=== PATIENT | male | born 1985 | race Caucasian/White ===

== ENCOUNTER 2025-05-15 05:46 | Emergency (ER) | payer OTHER, SELFPAY ==
[2025-05-15] VITALS (10 sets, daily range): BP systolic 116–132; BP diastolic 77–90; BMI 27.4
--- NOTE | 2025-05-15 06:35 | ED.GENMED ---
History of Present Illness
General
Chief Complaint: Catheter/Tube Problem
Source: patient and family (mom)
Exam Limitations: none
Time Seen by Provider: 05/15/25 06:07
Nursing documentation reviewed up to this point in time: agreed with
History of Present Illness
History of Present Illness:
The patient is a 39-year-old man with a past medical history of schizophrenia who arrives to our emergency department with a surgical drain that fell out accidentally within the last 24 hours. The patient is unclear as to how it fell out. The
patient has a vertical abdominal wound that is dressed but soaked with yellow contents. Patient is a vague historian. He reports he was recently at [facility] and underwent ' gut surgery'. He denies pain. He denies fevers and chills.
I spoke to the patient's mom, Padmini, at [phone] who reports that her son developed abdominal pain this past February 2025 and was brought to [facility]'s emergency department where he was diagnosed with what she believes was a perforated
stomach. She reports that he underwent multiple surgeries and unfortunately colon cancer was found. She reports that she believes he has undergone at least 2-3 surgical procedures removing parts of his large intestine and received a colostomy bag.
She reports she was told he has stage IV colon cancer and has not yet undergone treatment. She reports that he became septic from the initial perforations.
Past History
Past History
ED Past Medical History: Cancer (Stage IV colon cancer) and Psychiatric
ED Past Surgical History: Bowel resection (Colonic resection with colostomy)
Social History
Tobacco: Former smoker
Alcohol: Other
Drug: Other
Personal: Single
Living: [facility]ci
Employment: Other
Family History
Family History: Other
Review of Systems
Review of Systems
Allergies reviewed?: Yes
All Other Systems: ROS reviewed and negative except as documented in HPI and ROS
Constitutional: Reports no symptoms
EENT: Reports no symptoms
Respiratory: Reports no symptoms
Cardiac: Reports no symptoms
ABD/GI: Reports no symptoms
: Reports no symptoms
Musculoskeletal: Reports no symptoms
Skin: Reports no symptoms
Neurological: Reports no symptoms
Endocrine: Reports no symptoms
Hematologic/Lymphatic: Reports no symptoms
Psychiatric: Reports no symptoms
Phy Exam
Physical Exam
Physical Exam:
Physical Exam
General: no apparent distress, not acutely ill, chronically ill-appearing, disheveled
Neck: supple.
Heart: s1/s2 regular rate and rhythm, no murmur. equal radial pulses.
Lungs: no acute respiratory distress. clear bilaterally
Abdomen: Normal bowel sounds. Abdomen is slightly distended. Right lower quadrant colostomy bag filled with liquid stool, large lower abdominal vertical surgical-incisional skin edges are not erythematous or warm. Wound site
is draining thin to thick yellow material that is questionably serosanguineous versus purulent material. On palpating the abdomen, patient is relatively nontender. No rebound or guarding.
Neuro: alert and oriented. no focal neurological deficits
Skin: no rash
Psychiatric: well kept. interactive and cooperative
Extremities: no edema. no calf tenderness. negative homans. good distal pulses
Course
Orders/Labs/Results
Orders:
Orders
05/15/25 07:00
CT Abd/pelvis W Iv Cont Urgent
Comment:
Reason For Exam: post-surgical drain accidentally dislodged
05/15/25 08:19
Complete Blood Count/With Diff Urgent
Comprehensive Metabolic Panel Urgent
Abnormal Lab Results
05/15/25
08:19
WBC 11.7 H 10^3/uL
(4.8-10.8)
RBC 4.42 L 10^6/uL
(4.70-6.10)
Hgb 11.0 L g/dL
(13.0-18.0)
Hct 35.3 L %
(39.0-52.0)
MCV 79.9 L fL
(80.0-94.0)
MCH 24.9 L pg
(27.0-31.0)
MCHC 31.2 L g/dL
(33.0-37.0)
RDW 14.9 H %
(11.5-14.5)
Plt Count 627 H 10^3/uL
(130-400)
Abs Immat Gran (auto) 0.1 H 10^3/uL
(0-0.05)
Absolute Neuts (auto) 9.2 H 10^3/uL
(1.4-6.5)
Absolute Monos (auto) 0.9 H 10^3/uL
(0.1-0.6)
Neutrophils % 78.3 H %
(42.2-75.2)
Lymphocytes % 11.4 L %
(20.5-51.1)
BUN 4 L mg/dl
(9-20)
Creatinine 0.6 L mg/dL
(0.7-1.3)
05/15/25 08:19
05/15/25 08:19
Vital Signs
Initial and Last Documented VS:
Initial Vital Signs
Temp Pulse Resp BP Pulse Ox
97.6 F 92 33 123/82 95
05/15/25 05:48 05/15/25 05:48 05/15/25 05:48 05/15/25 05:48 05/15/25 05:48
Last Documented Vital Signs
Temp Pulse Resp BP Pulse Ox
98.2 F 106 29 125/79 97
05/15/25 07:40 05/15/25 09:45 05/15/25 09:45 05/15/25 09:00 05/15/25 08:33
MDM/Problems Addressed
Differential Diagnosis Includes:
Normal postsurgical wound healing, infected wound of abdomen, intra-abdominal abscess
MDM/Problems Addressed:
Patient presents with subacute drainage from abdominal wound
Chronic conditions affecting care: Previous abdomnial surgery
Acute Exacerbation and/or Progression of Chronic Illness:
Patient may have acute infection of wound from abdominal surgery
Acute Exacerbation and/or Progression of Chronic Illness: Previous abdomnial surgery
*Radiology
Radiology exam reviewed: radiology read reviewed
*Pulse Oximetry
SaO2: 99
Oxygen Mode of Delivery: Room air
Patient hypoxic: no
*EKG
Interpreted by ED Provider?: NA
*Rn Acute Care Interpretation
Rate: normal
Interpretation: normal
Rhythm: sinus
*Critical Care Note
Total Time (30-74mins, 75-104mins- exclusive of procedures): Not Applicable
Data Reviewed
Source: patient and family (Mother, Padmini)
Patient Management
Social determinants of health affecting care: Living situation
Discussion with other providers: Other (Surgeons at [facility])
Update Note
Update Note:
7:20 AM I discussed case with surgeon at [facility] who reports that patient is due anyway to have his drain pulled. He reports that drain has been in for 2 months. He reports that unless there is an acute wound infection or an acute
issue, that patient does not need to have the drain replaced and would not need transfer back to [facility]
Given patient does have yellow drainage from wound site, decision made to proceed with a CAT scan to rule out underlying abscess or wound infection
11:00 AM CAT scan shows no sign of intra-abdominal abscess. Wound site does not appear erythematous or warm. Patient still having no pain and is afebrile. I feel patient can safely go back to [facility]
ED Attending Note
-
Portions of this chart may have been created with voice recognition software.� Occasional wrong word or��sound alike� substitutions may have occurred due to the inherent limitations of voice recognition software.
Discharge Plan
Departure
Patient Disposition: Home (Routine Discharge)
Date of Disposition: 05/15/25
Time of Disposition: 11:02
Patient with high blood pressure during this ER visit?: Yes
Condition: Good
Covid-19: Not Applicable
Discharge Problem:
Encounter for post surgical wound check
Instructions: Caring for an open surgical wound, BLOOD PRESSURE
Prescriptions:
No Action
acetaminophen 325 mg Tablet
650 mg PO Q6H PRN (Reason: fever/pain)
citalopram 20 mg Tablet
20 mg PO DAILY
magnesium hydroxide [Milk of Magnesia] 400 mg/5 mL Suspension
400 mg PO HS PRN (Reason: constipation)
bisacodyl 10 mg Suppository
10 mg PA PRN PRN (Reason: constipation)
Fleet Enema 19-7 gram/118 mL Enema
118 ml PA ONCE PRN (Reason: constipation)
thiothixene 2 mg Capsule
2 mg PO BID
gabapentin 100 mg Capsule
200 mg PO TID
diazepam 5 mg Tablet
5 mg PO BID
oxycodone 5 mg Tablet
5 mg PO Q8H PRN (Reason: pain)
Invega Trinza 819 mg/2.63 mL Syringe
819 mg IM [id number]
Sodium Chloride Oral Tablet
452 mg PO TIDWMEAL
Referrals:
Francisco Barger DO [Family Provider, Internal Medicine]
Activity Restrictions/Additional Instructions:
Please follow wound care instructions as provided by [facility], such as cleaning and dressing the wound on a daily basis.
We have contacted the surgeons at [facility] and notified them that the drain was displaced. There is no further action that needs to be done in regards to the drain because it needed to be pulled out anyway
Return for any abdominal pain that is unusual or fever
Interventions
Interventions:
*Risk Screen - Suicide Last Done: 05/15/25 05:52
*General Assessment Last Done: 05/15/25 05:52
*Neglect/Abuse Screening Last Done: 05/15/25 05:52
*ED- Fall Risk Assessment Last Done: 05/15/25 05:52
*ED COVID-19 Vaccine History Last Done: 05/15/25 05:52
AD-Jtfpex-Bzligzpfpp Assessment Last Done: 05/15/25 07:20
ED-Male Genitourinary Assessment Last Done: 05/15/25 06:16
Discharge Date and Time
Print Language: CROATIAN
[2025-05-15 08:58] LABS: ALT (SGPT) 16 U/L (0-50); AST (SGOT) 20 U/L (17-59); Albumin 3.5 g/dl (3.5-5.0); Alkaline Phosphatase 126 U/L (38-126); Blood Urea Nitrogen 4 mg/dl (9-20); Calcium 9.3 mg/dl (8.4-10.2); Carbon Dioxide 24 mmol/L (22-30); Chloride 102 mmol/L (98-107); Estimated Creatinine Clearance > 125 ml/min; Glucose 91 mg/dl (70-99); Hematocrit 35.3 % (39.0-52.0); Hemoglobin 11.0 g/dL (13.0-18.0); Mean Corp Hgb Conc. 31.2 g/dL (33.0-37.0); Mean Corpuscular Volume 79.9 fL (80.0-94.0); Nucleated Red Blood Cells % 0 % (-); Platelet Count 627 10^3/uL (130-400); Potassium 4.5 mmol/L (3.5-5.1); Red Cell Dist. Width 14.9 % (11.5-14.5); Sodium 135 mmol/L (135-145); Total Protein 7.5 g/dl (6.3-8.2); eGFR > 60.00
--- NOTE | 2025-05-15 14:07 | EDRN ---
Report called to IAN Coon at [facility].
--- NOTE | 2025-05-15 14:45 | EDRN ---
Report given to [facility].
== END 2025-05-15 14:50 ==
LOC: EMR 05:46
PROVIDERS: EMERGENCY PHYSICIAN Emergency Medicine; FAMILY PHYSICIAN Internal Medicine
DX: Z48.815 Encounter for surgical aftercare following surgery on the digestive system (principal); Z48.01 Encounter for change or removal of surgical wound dressing; Z90.49 Acquired absence of other specified parts of digestive tract; Z93.3 Colostomy status; C18.9 Malignant neoplasm of colon, unspecified; R03.0 Elevated blood-pressure reading, without diagnosis of hypertension; F20.9 Schizophrenia, unspecified; Z87.891 Personal history of nicotine dependence
CPT/HCPCS: 99284; 74177; 80053; 85025; Q9967

== ENCOUNTER 2025-07-30 20:08 | Inpatient (IN) | payer OTHER, SELFPAY ==
[2025-07-30] VITALS (8 sets, daily range): BP systolic 97–113; BP diastolic 58–68; BMI 18.9
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
--- NOTE | 2025-07-30 16:48 | WOUNDNOTE ---
WO RN note: Patient seen for leaking ileostomy. Stoma flush. Peristomal skin with weeping irritant dermatitis extending to entire mid/lower abdominal/groin area. Sacral skin discolored red and scarred from previous skin breakdown. Skin on heels
intact. +Anasarca. Patient can turn self in bed. He states he can ambulate. Cleansed abdominal skin with soap and water, rinsed with water. Stoma powder to denuded peristomal skin followed by Cavilon advanced skin protectant (Solventum #[id number]).
[place] soft cut to fit wafer # [id number] with Ning seal and Ning paste applied, then Eden high output pouch # [id number] and connected to bedside Ileo pouch #[id number]. Ostomy supplies left with patient. Discussed with Hayley. Will ask [facility] RN [place] to
follow up tomorrow. Patient resides at [facility].
[2025-07-30 17:19] LABS: ALT (SGPT) 15 U/L (0-50); AST (SGOT) 23 U/L (17-59); Albumin 3.2 g/dl (3.5-5.0); Alkaline Phosphatase 109 U/L (38-126); Blood Urea Nitrogen 4 mg/dl (9-20); Calcium 9.1 mg/dl (8.4-10.2); Carbon Dioxide 23 mmol/L (22-30); Chloride 100 mmol/L (98-107); Estimated Creatinine Clearance > 125 ml/min; Glucose 87 mg/dl (70-99); Lipase 35 U/L (23-300); Potassium 4.3 mmol/L (3.5-5.1); Sodium 129 mmol/L (135-145); Total Protein 7.2 g/dl (6.3-8.2); eGFR > 60.00
[2025-07-30 17:22] LABS: Hematocrit 34.0 % (39.0-52.0); Hemoglobin 11.2 g/dL (13.0-18.0); Mean Corp Hgb Conc. 32.9 g/dL (33.0-37.0); Mean Corpuscular Volume 75.4 fL (80.0-94.0); Nucleated Red Blood Cells % 0 % (-); Platelet Count 511 10^3/uL (130-400); Red Cell Dist. Width 19.1 % (11.5-14.5)
[2025-07-30] MEDS: NSS 500 IV (17:31)
--- NOTE | 2025-07-30 18:13 | VATNOTE ---
pt unable to state whether port is POWER Injectable; No previous CXR to check.
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
[2025-07-30 20:51] LABS: Urine Character Clear (Clear)
[2025-07-30] MEDS: DESENEX/MITRAZOL/ZEASORB 1 APPLIC TOPICAL (22:16)
[2025-07-30] MEDS: SODIUM CHLORIDE 1 GRAM PO (22:16)
[2025-07-30 23:05] LABS: Iron 31 ug/dl (49-181)
[2025-07-30 23:14] LABS: Total Iron Binding Capacity 272 ug/dl (261-462)
[2025-07-30 23:42] LABS: Ferritin 170.0 ng/ml (17.9-464.0)
[2025-07-31] VITALS (25 sets, daily range): BP systolic 91–115; BP diastolic 56–76; BMI 26.1; BMI 25.1
[2025-07-31 06:24] LABS: Hematocrit 31.4 % (39.0-52.0); Hemoglobin 10.4 g/dL (13.0-18.0); Mean Corp Hgb Conc. 33.1 g/dL (33.0-37.0); Mean Corpuscular Volume 75.8 fL (80.0-94.0); Platelet Count 472 10^3/uL (130-400); Red Cell Dist. Width 19.3 % (11.5-14.5)
[2025-07-31 06:52] LABS: Blood Urea Nitrogen 2 mg/dl (9-20); Calcium 8.8 mg/dl (8.4-10.2); Carbon Dioxide 23 mmol/L (22-30); Chloride 107 mmol/L (98-107); Estimated Creatinine Clearance > 125 ml/min; Glucose 79 mg/dl (70-99); Potassium 4.4 mmol/L (3.5-5.1); Sodium 133 mmol/L (135-145); eGFR > 60.00
[2025-07-31] MEDS: SODIUM CHLORIDE 1 GRAM PO ×2 (08:10→19:39)
[2025-07-31] MEDS: VALIUM 5 MG PO ×2 (08:10→19:39)
[2025-07-31] MEDS: NEURONTIN 200 MG PO ×3 (08:10→19:38)
[2025-07-31] MEDS: DESENEX/MITRAZOL/ZEASORB 1 APPLIC TOPICAL ×2 (08:20→19:41)
--- NOTE | 2025-07-31 08:32 | WOUNDNOTE ---
WOC RN NOTE: Patient visited to assess ostomy/leaking overnight. Appliance intact and not leaking noted. Belt applied and all ostomy supplies left at bedside. Update given to RN, Chuck. Will follow as needed.
[2025-07-31] MEDS: CELEXA 20 MG PO (09:58)
--- NOTE | 2025-07-31 11:20 | EDCM ---
CM received consult, reviewed chart and met with pt bedside in ED. Prior to admission pt was at [facility] for STR, he has been there since May after a stay at [facility]. Prior to that he was living with his 82yo mother in an apartment in the
[facility].
He was diagnosed with colon cancer in February, has an ostomy and received 2 cycles of chemo at [facility].
Pt states he can ambulate without assistance, I spoke to Mary from PT who confirmed this but she has concerns he may not recognize his limitations.
I left a voicemail for Evelyne at [facility] requesting a call back to discuss his stay there and if they are holding a bed.
Pt did see an oncologist at [facility] here at .
Pt's mother's name is Padmini, her number is [phone], pt states he has one brother who lives in [place] and is not able to assist him.
PCP: Francisco Barger at [facility]
Pharmacy: [facility] - [facility]
Anticipate return to [facility] but CM will continue to follow for all discharge planning needs.
--- NOTE | 2025-07-31 12:57 | CON.ONC ---
Documented by User: ADELINA Ivan 07/31/25 13:46
Consultation
-
Date Consultation Requested: 07/31/25
Date Consultation Performed: 07/31/25
Requesting Provider: Dr. Noah Proctor
Performing Provider: Dr. Devyn Awad
Reason for Consultation: stage IV Colon cancer
Impression
Impression
IV colon cancer with CT CAP showing a positive response to 2 cycles of FOLFOX
Dermatitis secondary to bilious leakage
Plan
Plan
wound care
Surgery consult
PT/OT to optimize performance status
Would consider OP treatment once cancer has been restaged and acute issues have been addressed
OP follow up will be arranged upon hospital discharge
Patient History
History of Present Illness
39yo M resident of [facility] with stage IV colon cancer diagnosed in the summer 2024 who presented with abdominal wounds and leaking ostomy. His initial evaluation is notable for WBC 14.8, Hgb 11.2g/dL, MCV 75.4, platelet count 511,000, sodium 133,
ferritin 170, IS 11, iron 31, normal LFTs, no renal dysfunction. His CT CAP w IVC showed trace pleural effusion, slight interval decrease in the right subdiaphragmatic fluid collection, interval decrease in sean thickening of the sigmoid colon,
mildly enlarged b/l inguinal LN that are slightly progressed since May.
In brief, he was evaluated by Dr. Awad for initial consultation in the office yesterday for his stage IV colon adenocarcinoma. He was hospitalized March 08, 2025-May 14, 2025 at [facility] with pneumoperitoneum, secondary to invasive adenocarcinoma with
feculent peritonitis, resulting in multiple surgeries, with total colectomy, partial small bowel resection, and creation of end ileostomy. The pathology from his right colon resection revealed invasive adenocarcinoma, well differentiated, 1.5cm,
terminal ileum, arising in association with adenomatous percussor lesion. Adenocarcinoma infiltrates through the muscularis propria into the soft tissue and perforates the visceral peritoneum. Distal appendiceal tip with serosal adhesions and
transmural involvement by adenocarcinoma. Metastatic adenocarcinoma was present in 1 of 32 nodes. Pathology from subsequent left hemicolectomy revealed peritoneal adhesion involved with metastatic adenocarcinoma, from known colorectal primary, for a
final pathology [id number], stage IV colon cancer. He was discharged from [facility] to [facility]. Subsequently, he was [facility] in May and June 2025, receiving 2 cycles of
palliative FOLFOX 06/17/2025 and 07/01/2025. This patient reports fair tolerance of his chemotherapy. He was seen by Dr. Awad yesterday in an effort to seek medical oncology care closer to [facility]. His post-operative and chemotherapy course has
been complicated by sevre skin irrition areod his abdomen and pelvis, along iwth open abdominal wound leaking stool.
Clinically, this patient reports significant skin changes, excoriation over the lower 1/2 of his abdominal wall and into the inguinal and groin areas that are painful with movement and contact. He denies fever, chills, cough, sob, chest pain, nausea
or vomiting.
Past-Medical/Surgical History
PMH anemia, schizophrenia
PSH total colectomy, partial small bowel resection, creation of end ileostomy at [facility]
Social former smoker, denies etoh, or recreational drugs.
Family non-contributory
Patient Medication
�Medication �Instructions �Recorded �Confirmed �Last Taken �Type
Sodium Chloride Oral Tablet 500 mg PO TIDWMEAL 05/15/25 07/30/25 Unknown History
acetaminophen 325 mg tablet 650 mg PO Q6H PRN fever/pain 05/15/25 07/30/25 Unknown History
bisacodyl 10 mg rectal suppository 10 mg VA PRN PRN constipation 05/15/25 07/30/25 Unknown History
citalopram 20 mg tablet 20 mg PO DAILY 05/15/25 07/30/25 Unknown History
diazepam 5 mg tablet 5 mg PO BID 05/15/25 07/30/25 Unknown History
gabapentin 100 mg capsule 200 mg PO TID 05/15/25 07/30/25 Unknown History
magnesium hydroxide 400 mg/5 mL 400 mg PO HS PRN constipation 05/15/25 07/30/25 Unknown History
oral suspension (Milk of Magnesia)
oxycodone 5 mg tablet 5 mg PO Q8H PRN pain 05/15/25 07/30/25 Unknown History
paliperidone palm (3 month) 819 819 mg IM [id number] 05/15/25 07/30/25 Unknown History
mg/2.63 mL intramuscular syringe
(Invega Trinza)
sodium phosphates 19 gram-7 118 ml VA ONCE PRN constipation 05/15/25 07/30/25 Unknown History
gram/118 mL enema (Fleet Enema)
thiothixene 2 mg capsule 2 mg PO BID 05/15/25 07/30/25 Unknown History
Active Medications
Generic Name Dose Route Start Last Admin
Trade Name Freq PRN Reason Stop Dose Admin
Acetaminophen 650 mg 07/30/25 21:46
Acetaminophen 325 Mg Tablet PO 08/27/25 21:45
Q4HPRN PRN
Mild Pain / Temp > 101
Citalopram Hydrobromide 20 mg 07/31/25 08:00 07/31/25 09:58
Citalopram 20 Mg Tablet PO 08/28/25 07:59 20 mg
DAILY SARAH Administration
Diazepam 5 mg 07/31/25 08:00 07/31/25 08:10
Diazepam 5 Mg Tablet PO 08/28/25 07:59 5 mg
BID SARAH Administration
Enoxaparin Sodium 40 mg 07/31/25 18:00
Enoxaparin Sodium 40 Mg/0.4 Ml Syringe SC 08/28/25 17:59
QPM SARAH
Gabapentin 200 mg 07/31/25 08:00 07/31/25 08:10
Gabapentin 100 Mg Capsule PO 08/28/25 07:59 200 mg
TID SARAH Administration
Heparin Sodium (Porcine) 500 unit 07/31/25 06:56
Heparin Flush Pf (100 Unit/Ml) 5 Ml Syringe IV 08/28/25 06:44
PER PROTOCOL PRN
subq port flush
Miconazole Nitrate 0 applic 07/30/25 22:00 07/31/25 08:20
Miconazole Powder Bottle TOPICAL 08/27/25 21:59 1 applic
BID SARAH Administration
Non-Formulary Medication 2 mg 07/31/25 08:00
Thiothixene PO 08/28/25 07:59
BID SARAH
Oxycodone HCl 5 mg 07/30/25 23:31
Oxycodone 5 Mg Regular Release Tablet PO 08/13/25 23:30
Q8H PRN
moderate - severe pain
Sodium Chloride 1 gram 07/30/25 21:46 07/31/25 08:10
Sodium Chloride 1 Gram Tablet PO 08/27/25 21:45 1 gram
BID SARAH Administration
Sodium Chloride 0 flush 07/30/25 22:00
Sodium Chloride 0.9% (Flush) Syringe IV 08/27/25 21:59
PER PROTOCOL SARAH
Physical Exam
-
General:�Chronically�ill�looking.
Eyes:�EOM�intact.�Sclera�are�clear.
Cardiovascular:�S1,�S2�without�murmurs,�Heart�beat�regular.
Respiratory:�Unlabored.�No�rales�or�rhonchi,�no�added�sounds.
Gastrointestinal:�Ostomy�present�w/�severe�redness�and�irritation�around�mid�abdomen/�pelvis�and�upper�thigh�regions.�Apparent open�wound���potential�fistula�w/�stool.�
Hematologic/Lymphatic:�No�petechiae.�No�purpura.�
Extremities:�Edema�is�noted�in�the�bilateral�LE.�
Neurologic:�Patient�is�alert�and�oriented�X3.�Speech�is�fluent.
Labs
Lab Results
WBC 10.3 10^3/uL (4.8-10.8) 07/31/25 06:12
RBC 4.14 10^6/uL (4.70-6.10) L 07/31/25 06:12
Hgb 10.4 g/dL (13.0-18.0) L 07/31/25 06:12
Hct 31.4 % (39.0-52.0) L 07/31/25 06:12
MCV 75.8 fL (80.0-94.0) L 07/31/25 06:12
MCH 25.1 pg (27.0-31.0) L 07/31/25 06:12
MCHC 33.1 g/dL (33.0-37.0) 07/31/25 06:12
RDW 19.3 % (11.5-14.5) H 07/31/25 06:12
Plt Count 472 10^3/uL (130-400) H 07/31/25 06:12
MPV 8.3 fL (7.4-10.4) 07/31/25 06:12
Abs Immat Gran (auto) 0.1 10^3/uL (0-0.05) H 07/30/25 16:24
Absolute Neuts (auto) 11.1 10^3/uL (1.4-6.5) H 07/30/25 16:24
Absolute Lymphs (auto) 2.1 10^3/uL (1.2-3.4) 07/30/25 16:24
Absolute Monos (auto) 1.4 10^3/uL (0.1-0.6) H 07/30/25 16:24
Absolute Eos (auto) 0.1 10^3/uL (0-0.7) 07/30/25 16:24
Absolute Basos (auto) 0.1 10^3/uL (0-0.2) 07/30/25 16:24
Immature Gran % 0.5 % (0-0.5) 07/30/25 16:24
Neutrophils % 75.0 % (42.2-75.2) 07/30/25 16:24
Lymphocytes % 13.9 % (20.5-51.1) L 07/30/25 16:24
Monocytes % 9.1 % (1.7-9.3) 07/30/25 16:24
Eosinophils % 0.9 % (0-6) 07/30/25 16:24
Basophils % 0.6 % (0-2) 07/30/25 16:24
Creatinine 0.5 mg/dL (0.7-1.3) L 07/31/25 06:12
Vital Signs
Vital Signs
Temp Pulse Resp BP Pulse Ox
97.9 F 93 18 95/63 98
07/31/25 11:29 07/30/25 22:47 07/30/25 22:47 07/31/25 09:39 07/31/25 06:19

Documented by User: Devyn Awad MD 07/31/25 14:52
Plan
Plan
wound care
Surgery consult
PT/OT to optimize performance status
Would consider OP treatment once cancer has been restaged and acute issues have been addressed
OP follow up will be arranged upon hospital discharge
Oncology Addendum:
Patient seen and evaluated and agree w/ TECHNICIAN TRAINEE note and plan as outlined
-stage IV colon cancer - s/p total coletomy w/ ileostomy - now w/drainage/fistula
-colorectal surgery consultation-
-consider palliative chemotherapy as an outpt once restaged and acute issues addressed
Will continue to follow with you.
--- NOTE | 2025-07-31 15:05 | CON.CRS ---
Consultation
-
Date/Time Consultation Requested: 07/31/2025, 08:46
Date/Time Consultation Performed: 07/31/2025, 14:30
Requesting Provider: Noah Proctor MD
Performing Provider: Jean-Claude Barrera MD
Reason for Consultation: ostomy leakage
Medical History
-
Chief Complaint: ostomy leakage
History of Present Illness:
39-year-old male, with a past medical history of schizophrenia and stage IV colon cancer, presents to the ER due to an ostomy leak. Per records, the patient was at [facility] in the [facility] and diagnosed with colon cancer in February 2025.
Apparently he had a perforated sigmoid colon. The records are not available for review. Per Dr. Awad's consultation yesterday. He had been hospitalized from March 08, 2025 to May 14, 2025 at [facility] with a pneumoperitoneum, secondary to
invasive adenocarcinoma with feculent peritonitis, resulting in multiple surgeries with a total colectomy partial small bowel resection and creation of ileostomy. The pathology from the right colon showed invasive adenocarcinoma which is
well-differentiated 1.5 cm at the terminal ileum arising in association with adenoma lesion. There is infiltration through the muscularis propria into the soft tissue and perforates the visceral peritoneum. Metastatic adenocarcinoma is present at
1 out of 32 lymph nodes. Pathology of the left hemicolectomy revealed peritoneal adhesions with metastatic adenocarcinoma with the final pathology of [id number]. He has received 2 cycles of chemotherapy with FOLFOX. He is at [facility]
facility at [place] since May. Due to skin changes, excoriation over the lower half of the abdominal wall into the inguinal and groin areas, he was sent to the ER for further evaluation.
He was in our ER on May 15 with a surgical drain that fell out accidentally. The ER physician did call his surgeon at [facility] and was told that his drain was due to come out anyway. A CT scan was performed at that time which showed no
evidence of an intra-abdominal abscess. The patient was then discharged back to his nursing facility.
In the ER his WBC is 10.3. His vitals are normal and he is afebrile. A CAT scan was performed which showed a trace pleural effusion with probable atelectasis which is improved from his prior scan. There is a slight interval decrease in right
subdiaphragmatic fluid collection. There is an interval decrease in thickening of the sigmoid colon suggesting resolving inflammatory mass. He also has mildly enlarged bilateral inguinal lymph nodes which is slightly improved from prior and
nonspecific.
Past Medical History
Past Medical History: Other (anemia, schizophrenia)
Past Surgical History: Other (subtotal colectomy, partial small bowel resection, creation of end ileostomy at [facility])
Social History
Tobacco: Former Smoker
Alcohol: None
Drug: None
Family History
Family History: Reviewed & Not Pertinent
Allergies / Home Medications
Allergy/AdvReac Type Severity Reaction Status Date / Time
shellfish derived Allergy Swelling Verified 07/30/25 13:13
�Medication �Instructions �Recorded �Confirmed �Type
Sodium Chloride Oral Tablet 500 mg PO TIDWMEAL 05/15/25 07/30/25 History
acetaminophen 325 mg tablet 650 mg PO Q6H PRN fever/pain 05/15/25 07/30/25 History
bisacodyl 10 mg rectal suppository 10 mg NV PRN PRN constipation 05/15/25 07/30/25 History
citalopram 20 mg tablet 20 mg PO DAILY 05/15/25 07/30/25 History
diazepam 5 mg tablet 5 mg PO BID 05/15/25 07/30/25 History
gabapentin 100 mg capsule 200 mg PO TID 05/15/25 07/30/25 History
magnesium hydroxide 400 mg/5 mL 400 mg PO HS PRN constipation 05/15/25 07/30/25 History
oral suspension (Milk of Magnesia)
oxycodone 5 mg tablet 5 mg PO Q8H PRN pain 05/15/25 07/30/25 History
paliperidone palm (3 month) 819 819 mg IM [id number] 05/15/25 07/30/25 History
mg/2.63 mL intramuscular syringe
(Invega Trinza)
sodium phosphates 19 gram-7 118 ml NV ONCE PRN constipation 05/15/25 07/30/25 History
gram/118 mL enema (Fleet Enema)
thiothixene 2 mg capsule 2 mg PO BID 05/15/25 07/30/25 History
Review of Systems
-
History Source: Patient
Abdomen/GI: Other (leakage of abdominal wound and ileostomy)
A 10 point review of systems was completed, and was negative except as per HPI.
Physical Exam
Vital Signs
Temp 98.0 F 07/31/25 15:02
Pulse 93 07/30/25 22:47
Resp Rate 18 07/30/25 22:47
Blood pressure 103/61 07/31/25 15:02
SaO2 98 07/31/25 06:19
07/30/25 07/31/25 08/01/25
06:59 06:59 06:59
Actual Weight 80 kg
Body Mass Index (BMI) 18.9
Lab Results / Allergies
07/31/25 06:12
07/31/25 06:12
WBC 10.3 10^3/uL (4.8-10.8) 07/31/25 06:12
Hgb 10.4 g/dL (13.0-18.0) L 07/31/25 06:12
Hct 31.4 % (39.0-52.0) L 07/31/25 06:12
Plt Count 472 10^3/uL (130-400) H 07/31/25 06:12
Abs Immat Gran (auto) 0.1 10^3/uL (0-0.05) H 07/30/25 16:24
Neutrophils % 75.0 % (42.2-75.2) 07/30/25 16:24
Allergy/AdvReac Type Severity Reaction Status Date / Time
shellfish derived Allergy Swelling Verified 07/30/25 13:13
Physical Exam
General: Well Developed, Well Nourished and No Apparent Distress
GI: Soft, Non Tender, Non Distended and Other (ileostomy warm and pink, red leathery rash around lower abdominal area and groin, midline incision well healed with two small openings of light discharge)
Skin: Warm and Dry
Neuro: AO x 3
Psych: Calm
Data Reviewed
-
CT Scan: Image Personally Visualized and interpreted, Report Reviewed by me and Discussed with Physician
Labs: Labs Reviewed by me, Discussed with Physician and Discussed with Patient
Old Records: Reviewed
Assessment / Plan
-
Assessment: 39yo patient s/p subtotal colectomy at [facility] in February 2025 secondary to stage IV colon cancer, presents from SNF due to ileostomy leakage and skin wound
-Wound RN for ileostomy care/wound
-No plans for surgery at this time
-Monitor I/O's and ileostomy output
-Okay for diet from our standpoint
-Obtain records from [facility] regarding surgery
--- NOTE | 2025-07-31 15:09 | W.PN.HOSP.TC ---
Today's Communication/Plan
-
Assessment / Plan
Assessment / Plan
Discussed case with hematology as I did H&P reason for admission
Presented from [facility] to outpatient oncology office to begin transfer of care from [facility] for colorectal cancer. Upon presentation noted stool across his abdomen from that was leaking from ostomy and fistula per
oncology needs to have better management of this prior to initiating chemotherapy. Admission is not to initiate inpatient chemotherapy but it is too get him some wound care.
I spoke with colorectal surgery they reviewed some imaging still awaiting charts. No acute surgical interventions to be provided. Local wound care for now.
NAD
Scleral Anicteric
MMM
No JVD
CTABL
RRR, S1/S2
Ostomy connected to tubing with green stool
Warm, Dry
AAOx3
Ileostomy leakage and skin wound
Continue wound care
Continue barrier protective ointment for skin breakdown/dermatitis
Does not clinically look infected at this time
No indication for antibiotics
Monitor ileostomy output
Monitor I's and O's
Started on oral diet
Stage IV colon cancer
Will need outpatient oncology follow-up
Hyponatremia
Encourage p.o. intake
Fluid restrict
Require salt supplementation previously however not currently taking
Schizophrenia
Continue citalopram diazepam gabapentin
Without evidence acute psychosis
Anticipated Discharge: 24 - 48 hours
Subjective/Interval History
-
Date of Service: July 31, 2025
He examined. No new complaints. IV overnight events.
Objective Data
-
Labs:
Laboratory Results
07/31/25
06:12
WBC 10.3
Hgb 10.4 L
Hct 31.4 L
Plt Count 472 H
Sodium 133 L
Potassium 4.4
Chloride 107
Carbon Dioxide 23
BUN 2 L
Creatinine 0.5 L
Glucose 79
Calcium 8.8
Vital Signs:
Vital Signs
Temp Pulse Resp BP Pulse Ox
98.0 F 93 18 103/61 98
07/31/25 15:02 07/30/25 22:47 07/30/25 22:47 07/31/25 15:02 07/31/25 06:19
[2025-07-31] MEDS: LOVENOX 40 MG SC (18:30)
[2025-08-01 07:00] VITALS: BP 103/63
[2025-08-01 07:16] LABS: Hematocrit 36.7 % (39.0-52.0); Hemoglobin 11.4 g/dL (13.0-18.0); Mean Corp Hgb Conc. 31.1 g/dL (33.0-37.0); Mean Corpuscular Volume 80.3 fL (80.0-94.0); Platelet Count 526 10^3/uL (130-400); Red Cell Dist. Width 19.7 % (11.5-14.5)
[2025-08-01 07:41] LABS: Blood Urea Nitrogen 3 mg/dl (9-20); Calcium 9.1 mg/dl (8.4-10.2); Carbon Dioxide 27 mmol/L (22-30); Chloride 103 mmol/L (98-107); Estimated Creatinine Clearance > 125 ml/min; Glucose 77 mg/dl (70-99); Potassium 4.3 mmol/L (3.5-5.1); Sodium 134 mmol/L (135-145); eGFR > 60.00
--- NOTE | 2025-08-01 08:51 | W.PN.HOSP.TC ---
Today's Communication/Plan
-
See plan, hopefully discharge tomorrow
Assessment / Plan
Assessment / Plan
Physical Exam
NAD
Normocephalic
MMM
CTAB
RRR, S1/S2
Ostomy connected to tubing with green stool
Warm, Dry
AAOx3
Assessment/Plan
39 y/o male patient presented from [facility] to outpatient oncology office to begin transfer of care from [facility] for colorectal cancer. Upon presentation noted stool across his abdomen from that was leaking from
ostomy and fistula and per oncology he needs to have better management of this prior to initiating chemotherapy. This hospital admission is not to initiate inpatient chemotherapy but it is too get him some wound care.
Ileostomy leakage and skin wound
Continue wound care
Continue barrier protective ointment for skin breakdown/dermatitis
Colorectal surgery team consulted Infectious Disease, possible contact dermatitis versus cutaneous candidiasis versus cellulitis -- start oral Keflex 500 mg p.o. QID x 5 days and continue with topical Desenex to treat suspected candidiasis.
Monitor ileostomy output
Monitor I's and O's
Started on oral diet
Stage IV colon cancer
Will need outpatient oncology follow-up
Hyponatremia
Encourage p.o. intake
Fluid restrict
Required salt supplementation previously however not currently taking
Schizophrenia
Continue citalopram diazepam gabapentin
Without evidence acute psychosis
Anticipated Discharge: Within 24 hours
Subjective/Interval History
-
Date of Service: August 01, 2025
Patient was seen and examined. He denied any new complaints or symptoms.
Objective Data
-
Labs:
Laboratory Results
08/01/25
07:05
WBC 11.0 H
Hgb 11.4 L
Hct 36.7 L
Plt Count 526 H
Sodium 134 L
Potassium 4.3
Chloride 103
Carbon Dioxide 27
BUN 3 L
Creatinine 0.6 L
Glucose 77
Calcium 9.1
Vital Signs:
Vital Signs
Temp Pulse Resp BP Pulse Ox
97.3 F 65 18 103/63 99
08/01/25 07:00 08/01/25 07:00 08/01/25 07:00 08/01/25 07:00 08/01/25 07:00
I&O
07/31/25 08/01/25 08/02/25
06:59 06:59 06:59
Intake Total 640 / 640
Output Total 2950 / 2950
Balance -0 / -0
[2025-08-01] MEDS: VALIUM 5 MG PO ×2 (09:41→20:23)
[2025-08-01] MEDS: SODIUM CHLORIDE 1 GRAM PO ×2 (09:41→20:23)
[2025-08-01] MEDS: CELEXA 20 MG PO (09:41)
[2025-08-01] MEDS: NEURONTIN 200 MG PO ×3 (09:41→20:23)
[2025-08-01] MEDS: DESENEX/MITRAZOL/ZEASORB 1 APPLIC TOPICAL ×2 (09:42→20:25)
--- NOTE | 2025-08-01 10:28 | CON.ID ---
Consultation
-
Date/Time Consultation Requested: 08/01/2025 0938
Date/Time Consultation Performed: 08/01/2025 1028
Requesting Provider: Dr. Barrera
Performing Provider: Dr. Nieves
Reason for Consultation: Abdominal cellulitis
Chief Complaint / Past History
History of Present Illness
Jacinto Whalen is a 39-year-old man with a significant past medical history of paranoid schizophrenia and recently diagnosed colon cancer being evaluated at the request of CRS regarding abdominal cellulitis. History is obtained from chart review,
along with patient interview, but it was, patient could only provide superficial history.
Per reviewed ER notes the patient had fallen ill in February 2025 at which time he was brought to [facility] where he was diagnosed with a perforated viscus. He underwent multiple surgeries and ultimately colon cancer was diagnosed.
He subsequently underwent several additional surgeries, including subtotal colectomy and colostomy placement. Because of underlying disability from schizophrenia he was transferred to a local custodial and was recently evaluated by [facility]onc.
Examination revealed an erythematous lower abdomen and he was sent to the hospital for further evaluation.
At this time he denies any recent fevers or chills. He denies any significant lower abdominal skin discomfort. 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
Past History
Additional Past Medical History:
Metastatic colon cancer
Paranoid schizophrenia
Additional Past Surgical History:
Multiple abdominal surgeries including subtotal colectomy and colostomy placement
Allergy History:
shellfish derived Allergy (Verified 07/30/25 13:13)
Swelling
Medications Reviewed: Yes
Current Antibiotics:
none
Social History
Tobacco: Former Smoker
Alcohol: Former
Drug: None
Personal: Single
Living: Detention
Employment: Disabled
Family History
Family History: Not Pertinent
Review of Systems
Vital Signs
Temp Pulse Resp BP Pulse Ox
97.3 F 65 18 103/63 99
08/01/25 07:00 08/01/25 07:00 08/01/25 07:00 08/01/25 07:00 08/01/25 07:00
Physical Exam
Physical Exam
Constitutional: Comfortable, Chronically Ill and Non-toxic
Head: Normocephalic
Eyes: Pupils Equal, Pupils Round, No Conjunctival Hemorrhage and Sclera Anicteric
Oral: No Thrush and No Ulcers
Cardiovascular: S1/S2; Negative S3/S4 or Murmur
Pulmonary: Clear; Negative Wheezes or Rales
Gastrointestinal: Soft, Non Tender, Non Distended, Normal Bowel Sounds, No Rebound, No Guarding and Other (Right ostomy in place. Several midline abdominal wounds with drainage.)
Extremities: Edema; Negative Cyanosis or Erythema
Skin: Other (Diffuse lower abdominal erythema with some scaling. Erythema extends into the inguinal areas, along sides of lower abdomen)
Neurological: Awake and Alert
Psychological: Calm
Lab / Diagnostic Study Results
08/01/25 07:05
08/01/25 07:05
Abs Immat Gran (auto) 0.1 10^3/uL (0-0.05) H 07/30/25 16:24
Absolute Neuts (auto) 11.1 10^3/uL (1.4-6.5) H 07/30/25 16:24
Absolute Lymphs (auto) 2.1 10^3/uL (1.2-3.4) 07/30/25 16:24
Absolute Monos (auto) 1.4 10^3/uL (0.1-0.6) H 07/30/25 16:24
Absolute Basos (auto) 0.1 10^3/uL (0-0.2) 07/30/25 16:24
Immature Gran % 0.5 % (0-0.5) 07/30/25 16:24
Neutrophils % 75.0 % (42.2-75.2) 07/30/25 16:24
Lymphocytes % 13.9 % (20.5-51.1) L 07/30/25 16:24
Monocytes % 9.1 % (1.7-9.3) 07/30/25 16:24
Eosinophils % 0.9 % (0-6) 07/30/25 16:24
Basophils % 0.6 % (0-2) 07/30/25 16:24
Microbiology Results
Micro:
07/31/25 06:12 MRSA Screen - Final
Nose No Methicillin Resistant Staphylococcus aureus isolated.
Imaging:
07/30/2025 CT abdomen/pelvis: Trace left pleural effusion with associated probable atelectasis, improved. Slight interval decrease in right subdiaphragmatic fluid collection. Interval decrease in thickening of the sigmoid colon suggesting
resolving inflammatory mass. Mildly enlarged bilateral inguinal lymph nodes, slightly progressed from prior, nonspecific and likely reactive.
05/15/2025 CT abdomen/pelvis: There are bilateral thin, tubular intraabdominal fluid collections as detailed above which most likely represent tracts of previous drainage catheters. On the right, there are a few tiny foci of gas within the tract.
There is superior extension to a very small right subdiaphragmatic fluid collection as above. Abnormal masslike thickening of the sigmoid colon as above with surrounding inflammatory changes. While this could represent an inflammatory process, the
appearance is suspicious for malignancy. Comparison with any previous outside examinations could be helpful in further evaluation. Post subtotal colectomy with right abdominal ileostomy, no bowel obstruction. Very small bilateral pleural effusions
with adjacent atelectasis.
Assessment / Plan
Lower abdomen erythema
- Suspect contact dermatitis +/- cellulitis +/- cutaneous candidiasis
Metastatic colon cancer
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
Low-grade leukocytosis
Recommendations:
At present, is unclear whether the lower abdominal erythema is solely secondary to contact dermatitis versus cutaneous candidiasis. There may be a cellulitic component, also.
Would place on oral Keflex 500 mg p.o. QID x 5 days.
Continue with topical Desenex to treat suspected candidiasis.
Local care to the draining anterior abdominal wounds to prevent ongoing contact dermatitis
Care Review
Plan reviewed with: Physician ([email or web address])
[2025-08-01] MEDS: KEFLEX 500 MG PO ×3 (14:13→20:23)
--- NOTE | 2025-08-01 14:24 | W.PN.CRS1 ---
Today's Communication / Plan
-
Local wound care
Assessment/Plan
-
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
leaving him with the equivalent of a subtotal colectomy with end ileostomy. This was all done at a [facility] in the [facility]. Presenting from SNF with contact dermatitis/cellulitis to the skin of the abdomen with 2 EC fistulas noted to
abdominal wall draining onto the skin. The small bowel under the midline radiographically does show perhaps evidence for fistulization to the midline. Obviously this is a very challenging situation with a young man with noncurable colon cancer and
enterocutaneous fistulas with an ileostomy. Surgery for this situation would be high risk and is not advisable.
AFVSS
Mild leukocytosis
Tolerating diet with good stoma outputs
Plan:
Wound care following, plan BID dressing changes over EC fistulas
ID consult placed, appreciate eval
Regular diet
Ok from surgical standpoint for return to SNF, dispo planning as per medicine team
Subjective Data
Subjective Data
Date of Service: August 01, 2025
Pt seen and examined at bedside with Dr. Barrera. Denies pain. Plan of care reviewed. tolerating diet.
Objective Data
-
Vital Signs
Temp Pulse Resp BP Pulse Ox
97.3 F 65 18 103/63 99
08/01/25 07:00 08/01/25 07:00 08/01/25 07:00 08/01/25 07:00 08/01/25 12:30
Intake & Output
07/31/25 08/01/25 08/02/25
06:59 06:59 06:59
Intake Total 640 / 640
Output Total 2950 / 2950
Balance -2310 / -2310
Intake:
Oral fluids 640 / 640
Output:
Liquid stool amount 1200 / 1200
Colostomy 1200 / 1200
Urine, Voided 1750 / 1750
Lab Results
08/01/25 07:05
08/01/25 07:05
Physical Exam
-
General: No Acute Distress
Abdomen: Soft, Non Distended, Non Tender, Bowel Movement (right abdominal stoma productive of stool/flatus) and Other
Skin: Warm and Other (reddened over entire abdomen)
Incision: Other (midline/healing, 2 small apparent EC fistulous with thin yellow/succus drainage)
[2025-08-01 15:53] VITALS: BP 97/64
[2025-08-01] MEDS: LOVENOX 40 MG SC (16:46)
[2025-08-02] VITALS: BP 108/66
[2025-08-02 03:12] VITALS: BMI 25.3
[2025-08-02 07:40] VITALS: BP 115/69
[2025-08-02] MEDS: VALIUM 5 MG PO ×2 (09:06→21:18)
[2025-08-02] MEDS: KEFLEX 500 MG PO ×4 (09:06→21:18)
[2025-08-02] MEDS: CELEXA 20 MG PO (09:06)
[2025-08-02] MEDS: NEURONTIN 200 MG PO ×3 (09:06→21:18)
[2025-08-02] MEDS: SODIUM CHLORIDE 1 GRAM PO ×2 (09:06→21:19)
[2025-08-02] MEDS: DESENEX/MITRAZOL/ZEASORB 1 APPLIC TOPICAL ×2 (09:07→21:19)
--- NOTE | 2025-08-02 11:37 | W.PN.CRS1 ---
Today's Communication / Plan
-
continue local skin care to abdomen
Assessment/Plan
-
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
leaving him with the equivalent of a subtotal colectomy with end ileostomy. This was all done at a [facility] in the [facility]. Presenting from SNF with contact dermatitis/cellulitis to the skin of the abdomen with 2 EC fistulas noted to
abdominal wall draining onto the skin. The small bowel under the midline radiographically does show perhaps evidence for fistulization to the midline. Obviously this is a very challenging situation with a young man with noncurable colon cancer and
enterocutaneous fistulas with an ileostomy. Surgery for this situation would be high risk and is not advisable.
AFVSS
WBC still pending
Tolerating diet with good stoma outputs
Plan:
Wound care following, continue BID dressing changes over EC fistulas
Appreciate ID, c/w course of 5 day keflex. Miconazole topically
Regular diet
Ok from surgical standpoint for return to SNF, dispo planning as per medicine team
OP follow up with primary surgeon
Subjective Data
Subjective Data
Date of Service: August 02, 2025
Pt seen and examined at bedside with Dr. Barrera. Denies n/v. tolerating diet. Denies pain.
Objective Data
-
Vital Signs
Temp Pulse Resp BP Pulse Ox
98.2 F 81 16 115/69 99
08/02/25 07:40 08/02/25 07:40 08/02/25 07:40 08/02/25 07:40 08/02/25 07:40
Intake & Output
08/01/25 08/02/25 08/03/25
06:59 06:59 06:59
Intake Total 640 / 640 2200 / 2200
Output Total 2950 / 2950 4100 / 4100
Balance -2310 / -2310 -1900 / -0
Intake:
Oral fluids 640 / 640 2199 / 2199
Output:
Liquid stool amount 1200 / 1200 900 / 900
Colostomy 1200 / 1200 900 / 900
Urine, Voided 1750 / 1750 3200 / 3200
Physical Exam
-
General: No Acute Distress
Abdomen: Soft, Non Distended, Non Tender and Bowel Movement (right abdominal stoma productive of stool/flatus)
Skin: Warm and Other (reddened over entire abdomen but improved)
Incision: Other (midline/healing, 2 small apparent EC fistulous with thin yellow/succus drainage)
--- NOTE | 2025-08-02 11:39 | W.PN.HOSP.TC ---
Today's Communication/Plan
-
Discussed with family preservation caseworker, transport will need to be arranged tomorrow
He is stable/doing well
Assessment / Plan
Assessment / Plan
Physical Exam
NAD
Normocephalic
MMM
CTAB
RRR, S1/S2
Ostomy connected to tubing with green stool
Warm, Dry
AAOx3
Assessment/Plan
39 y/o male patient presented from [facility] to outpatient oncology office to begin transfer of care from [facility] for colorectal cancer. Upon presentation noted stool across his abdomen from that was leaking from
ostomy and fistula and per oncology he needs to have better management of this prior to initiating chemotherapy. This hospital admission is not to initiate inpatient chemotherapy but it is too get him some wound care.
Ileostomy leakage and skin wound
Continue wound care
Continue barrier protective ointment for skin breakdown/dermatitis
Colorectal surgery team consulted Infectious Disease, possible contact dermatitis versus cutaneous candidiasis versus cellulitis -- continue oral Keflex 500 mg p.o. QID x 5 days total (Day 1 was 08/01/25) and continue with topical Desenex to treat
suspected candidiasis.
Cellulitis is improving.
Monitor ileostomy output
Monitor I's and O's
Continue oral diet
When patient is discharged, he should follow-up with his [facility] Surgeon (not [facility]) as per colorectal surgery recommendations
Stage IV colon cancer
Will need outpatient oncology follow-up
Hyponatremia
Encourage p.o. intake
Fluid restrict
Required salt supplementation previously however not currently taking
Schizophrenia
Continue citalopram diazepam gabapentin
Without evidence acute psychosis
Anticipated Discharge: Within 24 hours
Subjective/Interval History
-
Date of Service: August 02, 2025
Patient was seen and examined. He denied any new symptoms or complaints. He is tolerating his diet fine.
Objective Data
-
Labs:
Laboratory Results
08/02/25
11:16
WBC Pending
Hgb Pending
Hct Pending
Plt Count Pending
Sodium Pending
Potassium Pending
Chloride Pending
Carbon Dioxide Pending
BUN Pending
Creatinine Pending
Glucose Pending
Calcium Pending
Vital Signs:
Vital Signs
Temp Pulse Resp BP Pulse Ox
98.2 F 81 16 115/69 99
08/02/25 07:40 08/02/25 07:40 08/02/25 07:40 08/02/25 07:40 08/02/25 07:40
I&O
08/01/25 08/02/25 08/03/25
06:59 06:59 06:59
Intake Total 640 / 640 2200 / 2200
Output Total 2950 / 2950 4100 / 4100
Balance -2310 / -2310 -1900 / -1900
[2025-08-02 11:44] LABS: Hematocrit 32.8 % (39.0-52.0); Hemoglobin 10.6 g/dL (13.0-18.0); Mean Corp Hgb Conc. 32.3 g/dL (33.0-37.0); Mean Corpuscular Volume 76.6 fL (80.0-94.0); Platelet Count 557 10^3/uL (130-400); Red Cell Dist. Width 19.3 % (11.5-14.5)
[2025-08-02 11:53] LABS: Blood Urea Nitrogen 5 mg/dl (9-20); Calcium 8.8 mg/dl (8.4-10.2); Carbon Dioxide 25 mmol/L (22-30); Chloride 106 mmol/L (98-107); Estimated Creatinine Clearance > 125 ml/min; Glucose 93 mg/dl (70-99); Potassium 4.6 mmol/L (3.5-5.1); Sodium 133 mmol/L (135-145); eGFR > 60.00
--- NOTE | 2025-08-02 13:57 | CM ---
Note for [facility] SNF auth-
Call to [facility] to request SNF auth for return SNF today [phone]
Was told [facility] unable to processed on weekends, will be processed during next business day
Was told to fax clinicals to [phone]
Was advised PT/OT evals will be accepted within 48 hours of dc, 07/31 acceptable for auth processing
ID# [id number]
[id number]
[facility] [id number]
requesting Physician Dr Craig Harmon [id number]
Receiving Physician Dr. Lolis Guaman [id number]
[facility] #[id number]
[2025-08-02 15:37] VITALS: BP 108/61
--- NOTE | 2025-08-02 16:14 | CM ---
CM reviewed pt with attending- medically ready for dc
Bed remains available at [facility] per admissions and will accept with pendign auth
Call to [facility] [facility] [phone], auth unable to be processed on weekends
Clinicals faxed to them per their request [phone]
Confirmed PT/OT evals from 07/31 acceptable for auth
Per 07/31 therapy evals, pt does not appear to meet criteria for BLS transport
SNF unable to arrange for van garbage pick up worker but also noted concern that he is not appropriate for van due to poor medical condition
Call to [facility] [phone] to inquire into van benefit- closed on weekend
Discharge Disposition- return to [facility] SNF, auth pending
[2025-08-02] MEDS: LOVENOX 40 MG SC (17:58)
--- NOTE | 2025-08-02 18:19 | PTCARENOTE ---
PT's appliance from his stomach and its contents leaked out over his stomach. He measured output at 800ml. I believe he is going to have trouble managing his appliance and empting it. He has little idea in what to do at what time? I
believe he needs a larger ileostomy drainage bag because of his non reactive nature. He said he sat with stool on his stomach because the nurses did not come to change him and his appliance. I told him that he needs to learn and be active with his
own care and change his appliance when he needs to.
[2025-08-02 23:45] VITALS: BP 100/56
--- NOTE | 2025-08-02 23:59 | PTCARENOTE ---
ileostomy appliance changes again after from stomach
[2025-08-03 04:43] LABS: Hematocrit 32.7 % (39.0-52.0); Hemoglobin 10.5 g/dL (13.0-18.0); Mean Corp Hgb Conc. 32.1 g/dL (33.0-37.0); Mean Corpuscular Volume 76.6 fL (80.0-94.0); Platelet Count 531 10^3/uL (130-400); Red Cell Dist. Width 19.1 % (11.5-14.5)
--- NOTE | 2025-08-03 04:58 | PTCARENOTE ---
ileostomy appliance once again from skin- bm is very thick- this is the third time since yesterday
[2025-08-03 05:03] LABS: Blood Urea Nitrogen 5 mg/dl (9-20); Calcium 9.2 mg/dl (8.4-10.2); Carbon Dioxide 25 mmol/L (22-30); Chloride 108 mmol/L (98-107); Estimated Creatinine Clearance > 125 ml/min; Glucose 76 mg/dl (70-99); Potassium 4.5 mmol/L (3.5-5.1); Sodium 135 mmol/L (135-145); eGFR > 60.00
[2025-08-03 06:00] VITALS: BMI 25.5
[2025-08-03 07:25] VITALS: BP 110/65
--- NOTE | 2025-08-03 08:08 | W.PN.HOSP.TC ---
Today's Communication/Plan
-
Discharge today
Assessment / Plan
Assessment / Plan
Physical Exam
NAD
Normocephalic
MMM
CTAB
RRR, S1/S2
Ostomy connected to tubing with green stool
Warm, Dry
AAOx3
Assessment/Plan
39 y/o male patient presented from [facility] to outpatient oncology office to begin transfer of care from [facility] for colorectal cancer. Upon presentation noted stool across his abdomen from that was leaking from
ostomy and fistula and per oncology he needs to have better management of this prior to initiating chemotherapy. This hospital admission is not to initiate inpatient chemotherapy but it is too get him some wound care.
Lower abdomen erythema - suspected secondary to contact dermatitis +/- cellulitis +/- cutaneous candidiasis
Ileostomy leakage and skin wound
Continue wound care
Continue barrier protective ointment for skin breakdown/dermatitis
Colorectal surgery team consulted Infectious Disease, possible contact dermatitis versus cutaneous candidiasis versus cellulitis -- continue oral Keflex 500 mg p.o. QID x 5 days total (Day 1 was 08/01/25) and continue with topical Desenex to treat
suspected candidiasis.
Cellulitis is improving.
Monitor ileostomy output
Monitor I's and O's
Continue oral diet
When patient is discharged, he should follow-up with his [facility] Surgeon (not [facility]) as per colorectal surgery recommendations
Stage IV colon cancer
Will need outpatient oncology follow-up
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
Hyponatremia
Encourage p.o. intake
Fluid restrict
Required salt supplementation previously however not currently taking
Low-Grade Leukocytosis
Reactive thrombocytosis
Multifactorial anemia including but not limited to malignancy, inflammation
Schizophrenia
Continue citalopram diazepam gabapentin
Without evidence acute psychosis
Stage 1 sacrum pressure injury, POA
More than 30 minutes spent in discharge including
Final examination of the patient
Summarizing hospital stay
Instructions for continuing care to all relevant caregivers
Preparation of discharge records, prescriptions, and referral forms
Total time spent (in minutes): 41
Anticipated Discharge: Today
Subjective/Interval History
-
Date of Service: August 03, 2025
Patient was seen and examined. He denied any new symptoms or complaints.
Objective Data
-
Labs:
Laboratory Results
08/03/25 08/03/25
04:32 04:33
WBC 10.7
Hgb 10.5 L
Hct 32.7 L
Plt Count 531 H
Sodium 135
Potassium 4.5
Chloride 108 H
Carbon Dioxide 25
BUN 5 L
Creatinine 0.5 L
Glucose 76
Calcium 9.2
Vital Signs:
Vital Signs
Temp Pulse Resp BP Pulse Ox
97.9 F 59 18 100/56 99
08/02/25 23:45 08/02/25 23:45 08/02/25 23:45 08/02/25 23:45 08/02/25 23:45
I&O
08/02/25 08/03/25 08/04/25
06:59 06:59 06:59
Intake Total 2200 / 2200 2019
Output Total 4100 / 4100 4890 / 4890
Balance -1900 / -1900 -2870 / -2870
[2025-08-03] MEDS: CELEXA 20 MG PO (08:13)
[2025-08-03] MEDS: VALIUM 5 MG PO (08:13)
[2025-08-03] MEDS: DESENEX/MITRAZOL/ZEASORB 1 APPLIC TOPICAL (08:13)
[2025-08-03] MEDS: SODIUM CHLORIDE 1 GRAM PO (08:13)
[2025-08-03] MEDS: NEURONTIN 200 MG PO ×2 (08:13→15:54)
[2025-08-03] MEDS: KEFLEX 500 MG PO ×2 (08:13→12:06)
--- NOTE | 2025-08-03 08:29 | W.PN.ONC2 ---
Today's Communication / Plan
-
Would consider OP treatment once acute issues have been addressed
OP follow up with medical oncology will be arranged upon discharge
Impression
Impression
IV colon cancer with CT CAP showing a positive response to 2 cycles of FOLFOX
Dermatitis secondary to bilious leakage
reactive thrombocytosis
multifactorial anemia including but not limited to malignancy, inflammation -Hgb stable >10g/dL
Plan
Plan
-stage IV colon cancer - s/p total coletomy w/ ileostomy - now w/drainage/fistula
Subjective/Objective
Subjective
afebrile, no hypoxia or hypotension
Vital Signs:
Vital Signs
Temp Pulse Resp BP Pulse Ox
97.9 F 59 18 100/56 99
08/02/25 23:45 08/02/25 23:45 08/02/25 23:45 08/02/25 23:45 08/02/25 23:45
Lab Results:
Laboratory Data
WBC 10.7 10^3/uL (4.8-10.8) 08/03/25 04:33
Hgb 10.5 g/dL (13.0-18.0) L 08/03/25 04:33
Plt Count 531 10^3/uL (130-400) H 08/03/25 04:33
eGFR > 60.00 08/03/25 04:32
Physical Exam
General:�Chronically�ill�looking.
Eyes:�EOM�intact.�Sclera�are�clear.
Cardiovascular:�S1,�S2�without�murmurs,�Heart�beat�regular.
Respiratory:�Unlabored.�No�rales�or�rhonchi,�no�added�sounds.
Gastrointestinal:�Ostomy�present�w/�severe�redness�and�irritation�around�mid�abdomen/�pelvis�and�upper�thigh�regions.�Apparent open�wound���potential�fistula�w/�stool.�
Hematologic/Lymphatic:�No�petechiae.�No�purpura.�
Extremities:�Edema�is�noted�in�the�bilateral�LE.�
Neurologic:�Patient�is�alert�and�oriented�X3.�Speech�is�fluent.
--- NOTE | 2025-08-03 09:02 | PN.CDI ---
CDI
- -
CDI:
Physician Documentation Request
Admit Date: 07/30/25 20:08
Dear Doctor Faustino,
Please review the following and provide your response in the progress notes.
Clinical Indicators:
- RN skin assessments indicate Stage 1 sacrum pressure injury, POA
Physician documentation of the type and location of wounds is required for compliant documentation. Based on the above clinical findings and your assessment, please provide the following in your progress note:
1. Location of the ulcer/wound, including laterality.
2. Type (etiology) of ulcer/wound:
- Diabetic ulcer
- Arterial (ischemic) ulcer
- Traumatic wound
- Venous stasis ulcer
- Pressure (decubitus) ulcer
- Other
Use of terms such as suspected, likely, concern for, or probable (associated with a specific diagnosis that is being evaluated, monitored, or treated as if it exists) are acceptable and can be coded in the inpatient setting, when documented at the
time of discharge.
Thank you,
Enednia Hansen RN
CDI Specialist
Please use your independent medical judgment in providing your response.
*Source: National Pressure Ulcer Advisory Panel (NPUAP)
--- NOTE | 2025-08-03 09:32 | W.PN.ID1 ---
Date of Service
Date of Service: August 03, 2025
Today's Communication
Continue keflex. See below...
Assessment / Plan
Lower abdomen erythema
- Suspect contact dermatitis +/- cellulitis +/- cutaneous candidiasis
Metastatic colon cancer
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
Low-grade leukocytosis
Recommendations:
At present, is unclear whether the lower abdominal erythema is solely secondary to contact dermatitis versus cutaneous candidiasis. There may be a cellulitic component, also.
Continue Keflex 500 mg p.o. QID x 3 more days.
Continue with topical Desenex to treat suspected candidiasis.
Local care to the draining anterior abdominal wounds to prevent ongoing contact dermatitis
Little more to offer from an Infectious Disease standpoint.
Will see again at your request.
Chief Complaint
-: Cellulitis
Subjective / Review of Systems
Review of Systems: No Fever and No Chills
Vital Signs / Physical Exam
Vital Signs
Vital Signs
Temp Pulse Resp BP Pulse Ox
97.8 F 76 16 110/65 99
08/03/25 07:25 08/03/25 07:25 08/03/25 07:25 08/03/25 07:25 08/03/25 07:25
Physical Exam
Constitutional: No Acute Distress, Comfortable and Non-toxic
Eyes: Sclera Anicteric
Cardiovascular: S1/S2; Negative S3/S4
Gastrointestinal: Soft, Non Tender, Non Distended and Other (ostomy in place)
Skin: Other (decreased erythema across lower abdomen)
Neurological: Awake and Alert
Objective Data
Lab Data
Lab Results
08/03/25 04:33
08/03/25 04:32
Estimated Creat Clear > 125 ml/min 08/03/25 04:32
Total Bilirubin 0.5 mg/dl (0.2-1.3) 07/30/25 16:24
AST 23 U/L (17-59) 07/30/25 16:24
ALT 15 U/L (0-50) 07/30/25 16:24
Alkaline Phosphatase 109 U/L (38-126) 07/30/25 16:24
Most recent labs reviewed.
Micro Results:
07/31/25 06:12 MRSA Screen - Final
Nose No Methicillin Resistant Staphylococcus aureus isolated.
Imaging:
07/30/2025 CT abdomen/pelvis: Trace left pleural effusion with associated probable atelectasis, improved. Slight interval decrease in right subdiaphragmatic fluid collection. Interval decrease in thickening of the sigmoid colon suggesting
resolving inflammatory mass. Mildly enlarged bilateral inguinal lymph nodes, slightly progressed from prior, nonspecific and likely reactive.
05/15/2025 CT abdomen/pelvis: There are bilateral thin, tubular intraabdominal fluid collections as detailed above which most likely represent tracts of previous drainage catheters. On the right, there are a few tiny foci of gas within the tract.
There is superior extension to a very small right subdiaphragmatic fluid collection as above. Abnormal masslike thickening of the sigmoid colon as above with surrounding inflammatory changes. While this could represent an inflammatory process, the
appearance is suspicious for malignancy. Comparison with any previous outside examinations could be helpful in further evaluation. Post subtotal colectomy with right abdominal ileostomy, no bowel obstruction. Very small bilateral pleural effusions
with adjacent atelectasis.
--- NOTE | 2025-08-03 13:55 | CM ---
Reviewed the chart notes and spoke with [place] Correspondent with [facility]. Auth received for 08/03-09/01; Auth # [id number]. [facility] looking into possibility of the facility transporting the patient.
Plan: Discharge back to [facility].
Call report to: [phone], ask for first floor nursing station.
Fax report to: [phone]
--- NOTE | 2025-08-03 15:28 | WOUNDNOTE ---
[facility] RN note: Patient's abdominal/groin MASD improved. Ileostomy appliance changed using stoma powder to denuded peristomal skin followed by Cavilon advanced skin protectant (Solventum #[id number]). [place] soft cut to fit wafer # [id number] with Ning seal
and Ning paste applied, then [place] high output pouch # [id number] and connected to bedside Ileo pouch #[id number]. Ostomy supplies left with patient. Stoma flush. Stool varies in consistency but mostly thick liquid brown. Sacral skin discolored dull red
and scarred from previous skin breakdown. Skin on heels intact. Patient can turn self in bed. He states he can ambulate. Discharge instructions updated with ostomy supplies/instructions. Instructed patient how to change appliance and encouraged
patient to become knowledgeable with his ostomy care and have nursing staff assist him at SNF.
[2025-08-03 15:41] VITALS: BP 114/68
--- NOTE | 2025-08-03 17:13 | WOUNDNOTE ---
[facility] RN note: t/c Spoke with nurse Dobbs at [facility] and gave ostomy appliance change instructions with ostomy order numbers. Suggested she give the order numbers to whomever does the supply ordering and that the order numbers are also in the
discharge instructions.
== END 2025-08-03 18:48 | DRG 603 ==
LOC: 2 NORTH 20:08
PROVIDERS: Hospitalist; ADMITTING PHYSICIAN Hospitalist; ATTENDING PHYSICIAN Hospitalist; CONSULT PHYSICIAN Internal Medicine Infectious Disease; CONSULT PHYSICIAN Surgery; EMERGENCY PHYSICIAN Emergency Medicine; OTHER PHYSICIAN Internal Medicine Hematology & Oncology
DX: L03.311 Cellulitis of abdominal wall (principal); C18.9 Malignant neoplasm of colon, unspecified; E87.1 Hypo-osmolality and hyponatremia; F20.0 Paranoid schizophrenia; K94.13 Enterostomy malfunction; D50.9 Iron deficiency anemia, unspecified; Z87.891 Personal history of nicotine dependence; L30.9 Dermatitis, unspecified; Z79.899 Other long term (current) drug therapy; Z90.49 Acquired absence of other specified parts of digestive tract; B37.2 Candidiasis of skin and nail; L89.151 Pressure ulcer of sacral region, stage 1
CPT/HCPCS: 71260; 74177; 80048; 80053; 81003; 82728; 83540; 83550; 83690; 83935; 84300; 84443; 85025; 85027; 87070; 97167; 97530; Q9967